=== PATIENT | male | born 1980 | race Hispanic/Latino ===

== ENCOUNTER 2021-11-24 09:23 | Emergency (ER) | payer BC, OTHER ==
[~2021-11-24] VITALS: Ht 200.7 cm; Wt 85.3 kg
[2021-11-24 09:50] LABS: BASOPHILS % (AUTO) 0.3 % (0.0-5.0); EOSINOPHILS % (AUTO) 1.4 % (0.0-8.0); HEMATOCRIT 43.4 % (42-54); LYMPHOCYTES % (AUTO) 35.2 % (21.0-51.0); MEAN CORPUSCULAR HEMOGLOBIN 28.6 pg (27.0-33.0); MEAN CORPUSCULAR HGB CONC 34.3 g/dL (32.0-36.0); MEAN CORPUSCULAR VOLUME 83.3 fL (79-99); MONOCYTES % (AUTO) 10.7 % (3.0-13.0); PLATELET COUNT (AUTO) 273 K/uL (130-400); RED BLOOD CELL COUNT(AUTO) 5.21 MIL/uL (4.50-6.20); RED CELL DISTRIBUTION WIDTH 12.7 % (11.0-15.5)
[2021-11-24 09:59] LABS: POTASSIUM 4.1 mmol/L (3.5-5.1)
[2021-11-24] MEDS ORDERED: LACTATED RINGERS 1000ML 1,000 ML IV ONE (10:00)
[2021-11-24] MEDS ORDERED: ZOSYN 3.375GM +NS 50ML IV SCH (10:00)
[2021-11-24] MEDS ORDERED: KETOROLAC 15MG/ML VIAL (15MG/ML) IV ONE (10:00)
[2021-11-24 10:04] LABS: ALBUMIN 3.7 g/dL (3.5-5.0); TOTAL PROTEIN, SERUM 7.5 g/dL (6.0-8.3)
[2021-11-24] MEDS ORDERED: IOHEXOL 350 MG/ML 100ML INFUS..BTL IV ONE (10:41)
[2021-11-24] MEDS ORDERED: NITR0.4T50 SL (11:39)
[2021-11-24] MEDS ORDERED: NIFE90TA4 PO (11:39)
[2021-11-24] MEDS ORDERED: ETAN50CA3 SQ (11:39)
[2021-11-24] MEDS ORDERED: FAMO20TA8 PO (11:39)
[2021-11-24] MEDS ORDERED: METO200T49 PO (11:39)
[2021-11-24] MEDS ORDERED: GEMF600T89 PO (11:39)
[2021-11-24] MEDS ORDERED: HYDR10 PO (11:39)
[2021-11-24] MEDS ORDERED: SEMA0.5P SQ (11:39)
[2021-11-24] MEDS ORDERED: DAPA10TA PO (11:39)
[2021-11-24] MEDS ORDERED: AEC81 PO (11:39)
[2021-11-24] MEDS ORDERED: ISOS30TA92 PO (11:39)
[2021-11-24] MEDS ORDERED: MULT-1296 PO (11:39)
[2021-11-24] MEDS ORDERED: SULF500T8 PO (11:39)
[2021-11-24] MEDS ORDERED: METF-446 PO (11:39)
[2021-11-24] MEDS ORDERED: TIZA4CAP8 PO (11:39)
[2021-11-24] MEDS ORDERED: GLIM2TAB30 PO (11:39)
[2021-11-24] MEDS ORDERED: ICOS1CAP PO (11:39)
[2021-11-24] MEDS ORDERED: ROSU40TA21 PO (11:39)
[2021-11-24 12:25] LABS: APPEARANCE,URINE CLEAR (CLEAR); BILIRUBIN,URINE NEGATIVE (NEGATIVE); COLOR,URINE YELLOW (YELLOW); GLUCOSE, URINE (UA) NEGATIVE (NEGATIVE); KETONES,URINE NEGATIVE (NEGATIVE); LEUKOCYTE ESTERASE ,URINE NEGATIVE (NEGATIVE); NITRATE,URINE NEGATIVE (NEGATIVE); OCCULT BLOOD,URINE NEGATIVE (NEGATIVE); PROTEIN,URINE NEGATIVE (NEGATIVE); UROBILINOGEN,URINE 0.2 mg/dL (0.2-1.0)
[2021-11-24 12:31] LABS: BACTERIA,URINE Rare /HPF (None Seen); RBC,URINE 0-1 /HPF (0-1); SQUAMOUS EPITHELIAL CELL,UR Rare /HPF (0-2); WBC,URINE None Seen /HPF (0-1)
[2021-11-24] MEDS ORDERED: METR375C2 PO (12:47)
[2021-11-24] MEDS ORDERED: OXYC-38 PO (12:47)
[2021-11-24] MEDS ORDERED: CIPR-278 PO (12:47)
[2021-11-24] MEDS ORDERED: DOCU-116 PO (12:47)
[2021-11-24 13:27] VITALS: BP 120/62
== END 2021-11-24 13:45 | disposition home or self-care (01) ==
LOC: EDH 09:23
DX: R10.32 Left lower quadrant pain (principal); Z79.899 Other long term (current) drug therapy; Z79.82 Long term (current) use of aspirin
CPT/HCPCS: 74177; 99284; 96365; 96375; 80053; 85025; 81001; 36415; J7120; J2543; J1885; Q9967